=== PATIENT | male | born 1965 | race African-American/Black ===

== ENCOUNTER 2017-12-09 11:46 | Emergency (ER) | payer OTHER ==
[~2017-12-09] VITALS: Ht 172.7 cm; Wt 96.0 kg
[~2017-12-09 11:46] MED LIST: BP PILL PO; ETOD400T PO; WATER PILL PO
[2017-12-09 11:51] VITALS: BP 161/89; PULSE 94; RESP 16; TEMP 98.4; O2SAT 98
[2017-12-09] MEDS ORDERED: VERA80TA PO (11:58)
[2017-12-09] MEDS ORDERED: CLON0.2T PO (11:58)
[2017-12-09] MEDS ORDERED: BACT800T5 PO (13:43)
[2017-12-09] MEDS ORDERED: CEPH-460 PO (13:43)
[2017-12-09] MEDS ORDERED: MUPI2%T TOPICAL (13:43)
--- NOTE | 2017-12-09 13:43 | PD ---
HPI Chief Complaint: Skin Problem Time Seen by Provider: 12:36 Travel History International Travel<30 days: No Contact w/Intl Traveler<30days: No Traveled to known affect area: No History of Present Illness HPI 52-year-old male with multiple pustules to his left thigh 3 days. Reports the lesions are mildly painful and burning. No fever chills. Symptom severity is moderate. No aggravating or alleviating factors. Has not attempted any over- the-counter or home remedies. PFSH Past Medical History Medical History: Denies Significant Hx Diminished Hearing: No Hypertension: Yes Immunizations Current: Yes Past Surgical History Abdominal Surgery: Yes (HERNIA REPAIR A CHILD) Social History Alcohol Use: No Tobacco Use: No Substance Use: No Allergies-Medications (Allergen,Severity, Reaction): Coded Allergies: No Known Allergies (Verified Adverse Reaction, Unknown, 12/09/17) Reported Meds & Prescriptions Reported Meds & Active Scripts Active Reported Clonidine (Clonidine HCl) 0.2 Mg Tab 0.2 Mg PO BID Verapamil (Verapamil HCl) 80 Mg Tab 80 Mg PO BID Review of Systems Except as stated in HPI: all other systems reviewed are Neg General / Constitutional: No: Fever Physical Exam Narrative GENERAL: Alert and well-appearing 52-year-old male SKIN: Warm and dry. 3 pustules noted to the left anterior thigh. No fluctuance or induration. HEAD: Normocephalic. EYES: No scleral icterus. No injection or drainage. NECK: Supple, trachea midline. No JVD or lymphadenopathy. CARDIOVASCULAR: Regular rate and rhythm without murmurs, gallops, or rubs. RESPIRATORY: Breath sounds equal bilaterally. No accessory muscle use. GASTROINTESTINAL: Abdomen soft, non-tender, nondistended. MUSCULOSKELETAL: No cyanosis, or edema. BACK: Nontender without obvious deformity. No CVA tenderness. Data Data Last Documented VS Vital Signs Date Time Temp Pulse Resp B/P (MAP) Pulse Ox O2 Delivery O2 Flow Rate FiO2 12/09/17 11:51 98.4 94 16 161/89 (113) 98 MDM Medical Decision Making Medical Screen Exam Complete: Yes Emergency Medical Condition: Yes Differential Diagnosis Folliculitis, abscess, cellulitis Narrative Course 52-year-old male here with folliculitis in the left thigh. This appears to be mild infection. He is nontoxic appearing. His vital signs are stable. He reports compliance with his antivirals. Return precautions were discussed. Diagnosis Primary Impression: Folliculitis Referrals: Primary Care Physician Additional Instructions: Antibiotics as directed. Follow-up the primary doctor. Return if he develop new or worsening symptoms Scripts Mupirocin Topical (Bactroban Topical) 22 Gm Cream 1 APPLIC TOPICAL TID for Mgmt Bacterial Infection, #1 TUBE 0 Refills Prov: Saloni Carbajal 12/09/17 Cephalexin (Keflex) 500 Mg Cap 500 MG PO Q6H for Infection for 10 Days, #40 CAP 0 Refills Prov: Saloni Carbajal 12/09/17 Sulfamethoxazole-Trimethoprim (Bactrim DS) 800-160 Mg Tab 1 TAB PO BID for Infection, #20 TAB 0 Refills Prov: Saloni Carbajal 12/09/17 Disposition: 01 DISCHARGE HOME Condition: Stable Saloni Carbajal Dec 09, 2017 13:43
== END 2017-12-09 13:56 | disposition home or self-care (01) ==
LOC: PHEFT 11:46
DX: L73.9 Follicular disorder, unspecified (principal); I10 Essential (primary) hypertension
CPT/HCPCS: 99283